=== PATIENT | female | born 1985 | race African-American/Black ===

== ENCOUNTER 2016-09-10 11:43 | Emergency (ER) | payer MEDICAID ==
[2016-09-10] MEDS ORDERED: Ibuprofen 800 MG TAB ONE (12:15)
== END 2016-09-10 12:23 | disposition home or self-care (01) ==
LOC: NAV ERS 11:43
DX: S00.83XA Contusion of other part of head, initial encounter (principal); K21.9 Gastro-esophageal reflux disease without esophagitis; E66.9 Obesity, unspecified; Z79.899 Other long term (current) drug therapy
CPT/HCPCS: 99283

== ENCOUNTER 2016-11-26 14:32 | Emergency (ER) | payer OTHER | END 2016-11-26 15:10 | disposition home or self-care (01) | LOC: NAV ERS 14:32 | DX: H10.13 Acute atopic conjunctivitis, bilateral (principal); K21.9 Gastro-esophageal reflux disease without esophagitis; I10 Essential (primary) hypertension; Z79.899 Other long term (current) drug therapy | CPT/HCPCS: 99283 ==

== ENCOUNTER 2016-11-29 13:36 | Emergency (ER) | payer OTHER ==
[2016-11-29 14:17] LABS: Blood, Urine Moderate (Negative); Clarity Cloudy (Clear); Glucose, Urine (Dipstick) Negative (Negative); Leukocyte Moderate (Negative); Nitrite Negative (Negative); Protein, Urine (Dipstick) 100 mg/dL (Neg-Trace)
[2016-11-29 14:22] LABS: Bilirubin Negative (Negative); Icto Negative (Negative); Specific Gravity, Urine 1.024 (1.002-1.036)
[2016-11-29 14:23] LABS: Pregnancy Test - Urine (BHCG) Negative (NEGATIVE); Pregu Control Background? CLEAR/WHITE (CLR/WHITE); Pregu Control Bar Appear? YES (CONTROL BAR); Specific Gravity 1.024 (1.002-1.036)
[2016-11-29 14:40] LABS: Bacteria/HPF Rare-Few HPF (None Seen)
== END 2016-11-29 15:10 | disposition home or self-care (01) ==
LOC: NAV ERS 13:36
DX: N39.0 Urinary tract infection, site not specified (principal); K21.9 Gastro-esophageal reflux disease without esophagitis; I10 Essential (primary) hypertension; Z79.899 Other long term (current) drug therapy
CPT/HCPCS: 81003; 81015; 81025; 87077; 87086; 87186; 99283

== ENCOUNTER 2017-01-19 21:34 | Emergency (ER) | payer OTHER, SELFPAY ==
[2017-01-19] MEDS ORDERED: HYDROcodone/Acetaminophen 5/325 mg Tablet ONE (22:00)
[2017-01-19] MEDS ORDERED: Amoxicillin/Potassium Clav 500 MG TAB ONE (22:00)
[2017-01-19] MEDS ORDERED: AMOXicillin 250 MG CAP ONE (22:02)
== END 2017-01-19 22:10 | disposition home or self-care (01) ==
LOC: NAV ERS 21:34
DX: K02.9 Dental caries, unspecified (principal); I95.9 Hypotension, unspecified; E66.9 Obesity, unspecified; K21.9 Gastro-esophageal reflux disease without esophagitis; Z79.899 Other long term (current) drug therapy
CPT/HCPCS: 99282

== ENCOUNTER 2017-02-11 10:59 | Emergency (ER) | payer SELFPAY ==
[2017-02-11] MEDS ORDERED: Ibuprofen 800 MG TAB ONE (12:06)
[2017-02-11] MEDS ORDERED: Acetaminophen 500 MG TAB ONE (12:06)
[2017-02-11] MEDS ORDERED: traMADol HCl 50 MG TAB ONE (12:06)
== END 2017-02-11 12:14 | disposition home or self-care (01) ==
LOC: NAV ERS 10:59
DX: S33.5XXA Sprain of ligaments of lumbar spine, initial encounter (principal); K21.9 Gastro-esophageal reflux disease without esophagitis; Z79.899 Other long term (current) drug therapy; X50.9XXA Other and unspecified overexertion or strenuous movements or postures, initial encounter; Y92.69 Other specified industrial and construction area as the place of occurrence of the external cause
CPT/HCPCS: 99283

== ENCOUNTER 2017-05-05 13:18 | Emergency (ER) | payer OTHER, SELFPAY ==
[2017-05-05] MEDS ORDERED: Ondansetron HCl/PF 4 MG/2 ML Vial ONE (14:13)
[2017-05-05] MEDS ORDERED: Ondansetron ODT 4 MG TAB ONE (14:16)
== END 2017-05-05 15:02 | disposition home or self-care (01) ==
LOC: NAV ERS 13:18
DX: K52.9 Noninfective gastroenteritis and colitis, unspecified (principal); K21.9 Gastro-esophageal reflux disease without esophagitis; I10 Essential (primary) hypertension
CPT/HCPCS: 96372; J2405; Q0162

== ENCOUNTER → 2017-05-28 | Emergency (ER) | payer OTHER ==
[~2017-05-28] MED LIST: Ibuprofen 800 MG TAB ONE
== END ==
LOC: NAV ERS 23:49
DX: S01.511A Laceration without foreign body of lip, initial encounter (principal); K21.9 Gastro-esophageal reflux disease without esophagitis; I95.9 Hypotension, unspecified; Z79.899 Other long term (current) drug therapy; X50.1XXA Overexertion from prolonged static or awkward postures, initial encounter
CPT/HCPCS: 12051; 40650

== ENCOUNTER 2017-06-08 10:55 | Emergency (ER) | payer OTHER ==
[2017-06-08 11:16] LABS: Bilirubin Negative (Negative); Blood, Urine Large (Negative); Glucose, Urine (Dipstick) Negative (Negative); Leukocyte Moderate (Negative); Nitrite Positive (Negative); Protein, Urine (Dipstick) 100 mg/dL (Neg-Trace)
[2017-06-08 11:19] LABS: Clarity Cloudy (Clear)
[2017-06-08 11:21] LABS: Specific Gravity, Urine 1.025 (1.002-1.036)
[2017-06-08 11:24] LABS: Bacteria/HPF 2+ HPF (None Seen); RBC/HPF 21-50 HPF (0-3); Transitional Epithelial 0-3 HPF (0-3)
[2017-06-08] MEDS ORDERED: Sulfameth/Trimethoprim DS 800-160mg TAB ONE (11:47)
== END 2017-06-08 11:50 | disposition home or self-care (01) ==
LOC: NAV ERS 10:55
DX: N39.0 Urinary tract infection, site not specified (principal); S01.511D Laceration without foreign body of lip, subsequent encounter; K21.9 Gastro-esophageal reflux disease without esophagitis; Z79.899 Other long term (current) drug therapy; X58.XXXD Exposure to other specified factors, subsequent encounter
CPT/HCPCS: 81003; 81015; 87077; 87086; 87186; 99283

== ENCOUNTER 2017-06-27 17:04 | Emergency (ER) | payer OTHER ==
--- NOTE | 2017-06-27 18:08 | RAD ---
LEFT RIBS: 06/27/17 Four views. HISTORY: Fall with injury to left chest and ribs. No evidence of rib fracture identified. No other rib lesion seen. Lungs are well aerated. IMPRESSION: No acute finding. POS: [facility]
== END 2017-06-27 18:20 | disposition home or self-care (01) ==
LOC: NAV ERS 17:04
DX: S23.41XA Sprain of ribs, initial encounter (principal); K21.9 Gastro-esophageal reflux disease without esophagitis; I95.9 Hypotension, unspecified; Z79.899 Other long term (current) drug therapy; W01.198A Fall on same level from slipping, tripping and stumbling with subsequent striking against other object, initial encounter

== ENCOUNTER 2017-07-08 21:03 | Emergency (ER) | payer OTHER ==
[2017-07-08] MEDS ORDERED: Metoclopramide HCl 10 MG/2 ML VIAL ONE (21:52)
[2017-07-08] MEDS ORDERED: Sodium Chloride 0.9% 1,000 ML ONE (21:52)
[2017-07-08] MEDS ORDERED: diphenhydrAMINE 50 MG/ML VIAL ONE (21:52)
[2017-07-08 22:01] LABS: #Basophils 0.1 thou/uL (0.0-0.2); #Lymphocytes 1.5 thou/uL (1.20-3.40); #Monocytes 0.4 thou/uL (0.11-0.59); #Neutrophils 2.9 thou/uL (1.40-6.50); %Basophils 1.2 % (0.0-1.0); %Lymphocytes 30.5 % (21.0-51.0); %Monocytes 7.2 % (0.0-10.0); %Neutrophils 60.1 % (42.0-75.0); Mean Corpuscular HGB CONC 33.1 g/dL (32.0-36.0); Mean Corpuscular Hemoglobin 29.9 pg (27.0-31.0); Mean Corpuscular Volume 90.4 fl (81.0-99.0); Mean Platelet Volume 7.9 fL (7.4-10.4); Platelet Count 167 thou/uL (130-400); RBC Distribution Width 11.9 % (11.5-14.5); Red Blood Cell (RBC) Count 4.02 mill/uL (4.20-5.40); White Blood Cell (WBC) Count 4.8 thou/uL (4.8-10.8)
[2017-07-08 22:08] LABS: ALT (SGPT) 10 U/L (8-55); AST (SGOT) 17 U/L (5-34); Albumin 3.5 g/dL (3.5-5.0); Alkaline Phosphatase 43 U/L (40-150); Anion Gap 11 mmol/L (10-20); BUN (Urea Nitrogen) 11 mg/dL (7.0-18.7); Bilirubin, Total 0.4 mg/dL (0.2-1.2); Calc. Creatinine Clearance 0 mL/min (70-130); Calcium 8.9 mg/dL (7.8-10.44); Carbon Dioxide 25 mmol/L (22-29); Chloride 107 mmol/L (98-107); Estimated GFR-MDRD Greater than 90; Globulin 3.1 g/dL (2.4-3.5); Glucose 86 mg/dL (70-105); Protein, Total 6.6 g/dL (6.0-8.3); Sodium 139 mmol/L (136-145)
== END 2017-07-08 23:13 | disposition home or self-care (01) ==
LOC: NAV ERS 21:03
DX: G43.909 Migraine, unspecified, not intractable, without status migrainosus (principal); K21.9 Gastro-esophageal reflux disease without esophagitis; Z79.899 Other long term (current) drug therapy
CPT/HCPCS: 80053; 85025; 93005; 96365; 96375; J1200; J2765; J7050

== ENCOUNTER 2019-01-28 05:33 | Emergency (ER) | payer OTHER, SELFPAY ==
[2019-01-28] MEDS ORDERED: Ondansetron PF 4 MG/2 ML Vial ONE (05:53)
[2019-01-28 06:03] LABS: Band 4 % (5-11); Eosinophils 1 % (0-10); Lymphocytes 32 % (21-51); MDiff Complete? YES; Mean Corpuscular HGB CONC 33.1 g/dL (32.0-36.0); Mean Corpuscular Hemoglobin 30.1 pg (27.0-31.0); Mean Platelet Volume 6.8 fL (7.4-10.4); Monocytes 3 % (0-10); Neutrophil 60 % (42-75); Platelet Count 213 thou/uL (130-400); Platelet Morphology Comment Appears Adequate; RBC Distribution Width 11.5 % (11.5-14.5); RBC Morphology Normal; Red Blood Cell (RBC) Count 3.99 mill/uL (4.20-5.40); White Blood Cell (WBC) Count 4.7 thou/uL (4.8-10.8)
[2019-01-28 06:07] LABS: ALT (SGPT) 11 U/L (8-55); AST (SGOT) 18 U/L (5-34); Albumin 3.7 g/dL (3.5-5.0); Alkaline Phosphatase 44 U/L (40-150); Anion Gap 12 mmol/L (10-20); BUN (Urea Nitrogen) 10 mg/dL (7.0-18.7); Bilirubin, Total 0.5 mg/dL (0.2-1.2); Calc. Creatinine Clearance 0 mL/min (70-130); Calcium 9.1 mg/dL (7.8-10.44); Carbon Dioxide 23 mmol/L (22-29); Chloride 108 mmol/L (98-107); Estimated GFR-MDRD Greater than 90; Globulin 3.2 g/dL (2.4-3.5); Glucose 86 mg/dL (70-105); Potassium 3.9 mmol/L (3.5-5.1); Protein, Total 6.9 g/dL (6.0-8.3); Sodium 139 mmol/L (136-145)
[2019-01-28 06:43] LABS: Bilirubin Negative (Negative); Blood, Urine Negative (Negative); Clarity Clear (Clear); Glucose, Urine (Dipstick) Negative (Negative); Leukocyte Trace (Negative); Nitrite Negative (Negative); Protein, Urine (Dipstick) Negative (Neg-Trace)
[2019-01-28 06:46] LABS: Pregnancy Test - Urine (BHCG) Negative (Negative); Pregu Control Background? CLEAR/WHITE (CLR/WHITE); Pregu Control Bar Appear? YES (CONTROL BAR)
[2019-01-28 06:48] LABS: Bacteria/HPF Rare-Few HPF (None Seen); RBC/HPF 0-3 HPF (0-3); WBC/HPF 0-3 HPF (0-3)
== END 2019-01-28 08:20 | disposition home or self-care (01) ==
LOC: NAV ERS 05:33
DX: E86.0 Dehydration (principal); R11.2 Nausea with vomiting, unspecified; R19.7 Diarrhea, unspecified; K21.9 Gastro-esophageal reflux disease without esophagitis; I10 Essential (primary) hypertension
CPT/HCPCS: 80053; 81003; 81015; 81025; 85025; 96361; 96374; J2405

== ENCOUNTER 2019-04-09 17:36 | Emergency (ER) | payer OTHER | END 2019-04-09 18:14 | disposition home or self-care (01) | LOC: NAV ERS 17:36 | DX: M25.461 Effusion, right knee (principal); G89.29 Other chronic pain; K21.9 Gastro-esophageal reflux disease without esophagitis | CPT/HCPCS: 99283 ==

== ENCOUNTER 2019-07-17 18:05 | Emergency (ER) | payer OTHER ==
--- NOTE | 2019-07-17 19:12 | RAD ---
EXAM: XR Foot Rt 3 View STANDARD PROVIDED CLINICAL HISTORY: Pain FINDINGS: There is no evidence for fracture or other acute osseous abnormality. Alignment appears anatomic. Tasha nt spaces appear preserved. Nonspecific prominence of the soft tissues of the dorsum of the foot. IMPRESSION: No evidence for an acute osseous abnormality. If there is persistent clinical concern, conservative m anagement and follow-up imaging advised.
== END 2019-07-17 19:33 | disposition home or self-care (01) ==
LOC: NAV ERS 18:05
DX: M79.671 Pain in right foot (principal); K21.9 Gastro-esophageal reflux disease without esophagitis; I95.9 Hypotension, unspecified

== ENCOUNTER 2020-03-16 18:38 | Emergency (ER) | payer OTHER ==
[2020-03-16] MEDS ORDERED: Acetaminophen 500 MG TAB ONE (19:14)
--- NOTE | 2020-03-16 20:44 | RAD ---
CERVICAL SPINE: 03/16/20 Four views. HISTORY: Neck pain. Cervical vertebrae maintain height and alignment. The disc spaces are preserved. Mild straightening o f the lordotic curvature. Mild anterior wedging at C6 which appears chronic. No evidence of acute fracture. IMPRESSION: Mild loss of anterior height at C6 which does not appear acute. Mild straightening of the lordotic cu rvature. POS: [facility]
== END 2020-03-16 19:47 | disposition home or self-care (01) ==
LOC: NAV ERS 18:38
DX: S16.1XXA Strain of muscle, fascia and tendon at neck level, initial encounter (principal); K21.9 Gastro-esophageal reflux disease without esophagitis; I10 Essential (primary) hypertension; V89.2XXA Person injured in unspecified motor-vehicle accident, traffic, initial encounter
CPT/HCPCS: 72040

== ENCOUNTER 2023-06-28 11:29 | Emergency (ER) | payer OTHER ==
[2023-06-28 12:02] LABS: Bilirubin Negative (Negative); Blood, Urine Small (Negative); Clarity Clear (Clear); Glucose, Urine (Dipstick) Negative (Negative); Ketone, Urine Negative (Negative); Leukocyte Trace (Negative); Nitrite Negative (Negative); Protein, Urine (Dipstick) 30 mg/dL (Neg-Trace); Specific Gravity, Urine 1.025 (1.005-1.030); pH, Urine 7.5 (5.0-9.0)
[2023-06-28 12:04] LABS: Bacteria/HPF Rare-Few HPF (None Seen); CAUTI Indications for Culture Dysuria,urgency,freq; Squamous Epithelial 0-3 HPF (0-3); Urine Culture Reflex No No; WBC/HPF 0-3 HPF (0-3)
[2023-06-28 12:24] LABS: Pregnancy Test - Urine (BHCG) Negative (Negative)
[2023-06-28 12:25] LABS: Pregu Control Background? CLEAR/WHITE (CLR/WHITE); Pregu Control Bar Appear? YES (CONTROL BAR); Specific Gravity 1.025 (1.002-1.036)
== END 2023-06-28 12:47 | disposition home or self-care (01) ==
LOC: NAV ERS 11:29
DX: R30.0 Dysuria (principal); K21.9 Gastro-esophageal reflux disease without esophagitis; Z79.899 Other long term (current) drug therapy
CPT/HCPCS: 81001; 81025; 87077; 87086; 87186; 99283

== ENCOUNTER 2025-04-12 10:38 | Emergency (ER) | payer OTHER ==
[2025-04-12] MEDS ORDERED: Ondansetron PF 4 MG/2 ML Vial ONE (11:13)
[2025-04-12] MEDS ORDERED: Ketorolac Tromethamine 30 MG (1 mL) VIAL ONE (11:13)
[2025-04-12 11:26] LABS: BHCG - Serum Negative (NEGATIVE); Pregs Control Bar Appear? YES (CONTROL BAR)
[2025-04-12 11:30] LABS: ALT (SGPT) 8 U/L (Less than 34); AST (SGOT) 19 U/L (11-34); Albumin 3.1 g/dL (3.1-4.5); Alkaline Phosphatase 42 U/L (40-110); Anion Gap 11 mmol/L (10-20); BUN (Urea Nitrogen) 6 mg/dL (7.0-18.7); Bilirubin, Total 0.4 mg/dL (0.3-1.2); Calc. Creatinine Clearance 0 mL/min (70-130); Calcium 8.1 mg/dL (7.8-10.44); Carbon Dioxide 22 mmol/L (22-29); Chloride 107 mmol/L (98-107); Globulin 3.2 g/dL (2.4-3.5); Glucose 87 mg/dL (70-105); Lipase 19 U/L (8-78); Potassium 3.7 mmol/L (3.5-5.1); Sodium 136 mmol/L (136-145)
[2025-04-12 11:31] LABS: Hematocrit 34.0 % (36.0-47.0); Hemoglobin 11.5 g/dL (12.0-16.0); Mean Corpuscular Hemoglobin 30.6 pg (27.0-31.0); Mean Corpuscular Volume 90.5 fl (78.0-98.0); Platelet Count 166 10x3/uL (130-400); Red Blood Cell (RBC) Count 3.76 mill/uL (4.20-5.40); White Blood Cell (WBC) Count 2.5 10x3/uL (4.8-10.8)
[2025-04-12 11:32] LABS: #Basophils 0.2 thou/uL (0.0-0.2); #Eosinophils 0.0 thou/uL (0.0-0.7); #Lymphocytes 0.6 thou/uL (1.20-3.40); #Monocytes 0.3 thou/uL (0.11-0.59); #Neutrophils 1.3 thou/uL (1.40-6.50); %Basophils 8.6 % (0.0-1.0); %Eosinophils 0.8 % (0.0-10.0); %Lymphocytes 24.2 % (21.0-51.0); %Monocytes 13.3 % (0.0-10.0); %Neutrophils 53.2 % (42.0-75.0); Manual Diff?? NO
[2025-04-12 12:34] LABS: Glucose, Urine (Dipstick) Negative (Negative); Leukocyte Negative (Negative); Protein, Urine (Dipstick) Negative (Neg-Trace); Specific Gravity, Urine 1.015 (1.005-1.030)
[2025-04-12] MEDS ORDERED: Pantoprazole 40 MG VIAL ONE (12:47)
[2025-04-12 13:09] LABS: Bacteria/HPF 2+ HPF (None Seen); CAUTI Indications for Culture Pelvic or flank pain; RBC/HPF 0-3 HPF (0-3)
[2025-04-12 13:10] LABS: Urine Culture Reflex No No
== END 2025-04-12 13:07 | disposition home or self-care (01) ==
LOC: NAV ERS 10:38
DX: N83.202 Unspecified ovarian cyst, left side (principal); R10.31 Right lower quadrant pain; R10.11 Right upper quadrant pain
CPT/HCPCS: 74177; 80053; 81001; 83690; 84703; 85025; 96361; 96374; 96375; J1885; J2405; J2470; J7030